=== PATIENT | male | born 1985 | race Two or more races ===

== ENCOUNTER 2023-01-14 11:03 | Emergency (ER) | payer BC ==
[~2023-01-14] VITALS: Ht 175.3 cm; Wt 72.6 kg
[~2023-01-14 11:03] MED LIST: AMOX1TAB5 PO; RELAGESIC TABL1 EACH PO
== END 2023-01-14 14:15 | disposition home or self-care (01) ==
LOC: ER 11:03
DX: M25.572 Pain in left ankle and joints of left foot (principal)